=== PATIENT | male | born 1970 | race Two or more races ===

== ENCOUNTER 2020-11-01 12:05 | Inpatient (IN) | payer BC ==
[~2020-11-01] VITALS: Ht 172.7 cm; Wt 5.0 kg
[2020-11-01] MEDS ORDERED: LIPITOR40 MG PO (12:49)
[2020-11-01] MEDS ORDERED: AZITHROMYCIN250 MG PO (12:50)
--- NOTE | 2020-11-01 12:51 | NUR ---
SE RECIBE PTE ALERTA Y ORIENTADO X3,REFIERE TENER DOLOR EN LA ESPALDA BAJA ,LEAH,FERNIE,FIGIANA.
--- NOTE | 2020-11-01 14:20 | NUR ---
SE RECIBE PTE MASCULINO DE 50 YRS ALERTA CONCIENTE Y TRANQUILO EN COPANIA DE FAMILAIR. PTE ES EVALUADO POR KEYSHA MA QUEIN ORDENA TRATAMIENTO LA COMPANIA DE FAMILIAR .
[2020-11-03] MEDS ORDERED: ZOLPIDEM TART6.25 MG (11:26)
== END 2020-11-12 11:41 | disposition left against medical advice (07) | DRG 694 ==
LOC: ER 12:05 → MEDJ 18:19 → MEDI 18:19 → SURH 23:09 → MEDJ 23:26 → MEDI 11-02 01:07 → MEDJ 11-02 16:41
PROVIDERS: ADMIT Internal Medicine; ATTEND Internal Medicine
PROC: BT4JZZZ Ultrasonography of Kidneys and Bladder (ICD-10-PCS; principal; 2020-11-01)
PROC: BW4GZZZ Ultrasonography of Pelvic Region (ICD-10-PCS; 2020-11-08)
DX: N20.0 Calculus of kidney (principal); N10 Acute pyelonephritis; N39.0 Urinary tract infection, site not specified; N41.0 Acute prostatitis; R78.81 Bacteremia; B96.29 Other Escherichia coli [E. coli] as the cause of diseases classified elsewhere; E86.0 Dehydration; E78.5 Hyperlipidemia, unspecified; Z87.442 Personal history of urinary calculi; Z20.822 Contact with and (suspected) exposure to COVID-19

== ENCOUNTER 2021-06-07 14:00 | Emergency (ER) | payer BC ==
[~2021-06-07] VITALS: Ht 172.7 cm; Wt 79.4 kg
[~2021-06-07 14:00] MED LIST: AZITHROMYCIN250 MG PO; LIPITOR40 MG PO; ZOLPIDEM TART6.25 MG
[2021-06-07] MEDS ORDERED: MEDROLPACK PO (18:07)
== END 2021-06-07 18:26 | disposition home or self-care (01) ==
LOC: ER 14:00
DX: G50.0 Trigeminal neuralgia (principal); Z03.818 Encounter for observation for suspected exposure to other biological agents ruled out

== ENCOUNTER 2023-01-19 20:37 | Emergency (ER) | payer BC ==
[~2023-01-19] VITALS: Ht 172.7 cm; Wt 78.0 kg
[~2023-01-19 20:37] MED LIST changes: +MEDROLPACK PO
== END 2023-01-19 22:19 | disposition home or self-care (01) ==
LOC: ER 20:37
DX: H57.12 Ocular pain, left eye (principal)

== ENCOUNTER 2024-08-18 20:19 | Emergency (ER) | payer BC ==
[~2024-08-18] VITALS: Ht 172.7 cm; Wt 77.1 kg
[2024-08-18] MEDS ORDERED: ROSUVASTATIN CA20 MG PO (21:36)
[2024-08-18] MEDS ORDERED: 0.9 % SODIUM CHLORIDE 1,000 ML IV ONE (23:45)
[2024-08-19] MEDS ORDERED: METRONIDAZOLE/SODIUM CHLORIDE 500 MG/100 ML PIGGYBACK IV ONE (00:15)
[2024-08-19] MEDS ORDERED: MEPERIDINE HCL/PF 25 MG/ML VIAL IV ONE (00:15)
[2024-08-19 01:55] LABS: ALBUMIN 4.4 gm/dL (3.4-5.0); BILIRUBIN TOTAL 0.46 mg/dL (0.3-1.2); CALCIUM 9.7 mg/dL (8.5-10.1); CREATININE SERUM 1.11 mg/dL (0.70-1.30); GFR 68.53; POTASSIUM 4.58 mEq/L (3.5-5.1); TOTAL PROTEIN 8.4 gm/dL (6.4-8.2)
[2024-08-19 02:05] LABS: URINE APPEARANCE Clear; URINE BILIRRUBIN Negative (NEGATIVE); URINE BLOOD Negative; URINE COLOR Yellow; URINE GLUCOSE Negative (NEGATIVE); URINE KETONE Negative (NEGATIVE); URINE LEUKOCYTE Trace; URINE NITRATE Negative; URINE PROTEIN Negative (NEGATIVE); URINE UROBILINOGEN 0.2 E.U./dl
[2024-08-19 02:10] LABS: URINE EPITHELIAL CELLS 1.5 uL (0.0-38.8); URINE RBC 10.7 uL (0.0-20.8); URINE WBC 1.8 uL (0.0-23.2)
[2024-08-19 02:31] LABS: URINE BACTERIA 1.2 uL (0.0-1933)
[2024-08-19] MEDS ORDERED: KETOROLAC TROMETHAMINE 30 MG VIAL IV ONE (02:45)
[2024-08-19 03:16] LABS: HEMOGLOBIN 14.6 g/dL (13-16.00); MEAN CELL VOLUME 88.6 fL (80.0-100.00); MEAN CORPUSCULAR HGB CONC 33.9 g/dl (32.0-36.0); PLATELET COUNT 253 K/uL (150-450); RED BLOOD COUNT 4.86 M/uL (4.00-6.00); RED CELL DISTRIBUTION WIDTH 13.7 % (11.5-14.5)
[2024-08-19] MEDS ORDERED: LEVSIN/SL0.125 MG SL (05:14)
[2024-08-19] MEDS ORDERED: PROTONIX40 MG PO (05:14)
[2024-08-19] MEDS ORDERED: CIPRO500 MG PO (05:14)
[2024-08-19] MEDS ORDERED: METRONIDAZOLE500 MG PO (05:14)
== END 2024-08-19 05:25 | disposition home or self-care (01) ==
LOC: ER 20:21
PROVIDERS: Emergency Medicine
DX: K57.32 Diverticulitis of large intestine without perforation or abscess without bleeding (principal)